=== PATIENT | female | born 1950 | race African-American/Black ===

== ENCOUNTER 2018-07-17 11:45 | Emergency (ER) | payer OTHER ==
[2018-07-17] MEDS ORDERED: ZOFRAN ODT PO STA (12:04)
[2018-07-17] MEDS ORDERED: LACTATED RINGERS 1,000 ML IV STA (12:04)
[2018-07-17 12:11] VITALS: BP 130/71; TEMP 98.8; BMI 26.4
--- NOTE | 2018-07-17 12:13 | ED.PDOC ---
General ED Provider: Dr. SEB BECKWITH Chief Complaint: Diarrhea Stated Complaint: Patient states that she has been having Diarrhea and vomiting since 4 AM today. She reports that she Vomited x 3 and had countless number of loose stools. Time Seen by Physician: 12:07 Mode of Arrival: Ambulance Information Source: Patient, EMT Exam Limitations: No limitations Nursing and Triage Documentation Reviewed and Agree: Yes Does patient meet sepsis criteria?: No System Inflammatory Response Syndrome: Not Applicable Sepsis Protocol: For patient's 13 years and over: Temp is 96.8 and below OR 101 and greater Pulse >90 BPM Resp >20/minute Acutely Altered Mental Status Are patient's symptoms suggestive of a new infection, such as: -Pneumonia -Skin, Soft Tissue -Endocarditis -UTI -Bone, Joint Infection -Implantable Device -Acute Abdominal Infection -Wound Infection -Meningitis -Blood Stream Catheter Infection -Unknown Review of Systems - Review Of Systems Constitutional: Reports: No symptoms Eyes: Reports: No symptoms Ears, Nose, Mouth, Throat: Reports: No symptoms Respiratory: Reports: No symptoms Cardiac: Reports: No symptoms GI: Reports: Diarrhea, Nausea, Poor appetite, Vomiting : Reports: No symptoms Musculoskeletal: Reports: No symptoms Skin: Reports: No symptoms Neurological: Reports: No symptoms Endocrine: Reports: No symptoms Hematologic/Lymphatic: Reports: No symptoms All Other Systems: Reviewed and Negative Past Medical History - Past Medical History Previously Healthy: Yes Endocrine: Reports: Dyslipidemia Cardiovascular: Reports: Hypertension Respiratory: Reports: None Hematological: Reports: None Gastrointestinal: Reports: None Genitourinary: Reports: None Neuro/Psych: Reports: None Musculoskeletal: Reports: None Cancer: Reports: None Last Menstrual Period: na - Surgical History General Surgical History: Reports: Hysterectomy, Hernia Repair, Other ( lumpectomy x4) - Family History Family History: Reports: Unknown - Social History Smoking Status: Never smoker Hx Substance Use: No Alcohol Screening: Occasionally - Immunizations Tetanus Shot up to Date: No Physical Exam - Physical Exam Appearance: Ill-appearing, Well-nourished Eyes: BRITTANY, EOMI, Conjunctiva clear ENT: Ears normal, Nose normal, Oropharynx normal Respiratory: Airway patent, Breath sounds clear, Breath sounds equal, Respirations nonlabored Cardiovascular: RRR, Pulses normal, No rub, No murmur GI/: Soft, Nontender, No masses, Bowel sounds normal, No Organomegaly Musculoskeletal: Normal strength, ROM intact, No edema, No calf tenderness Skin: Warm, Dry, Normal color Neurological: Sensation intact, Motor intact, Reflexes intact, Cranial nerves intact, Alert, Oriented Psychiatric: Affect appropriate, Mood appropriate Critical Care Note - Critical Care Note Total Time (mins): 0 Course - Course Hematology/Chemistry: 07/17/18 12:15 07/17/18 12:15 Orders, Labs, Meds: Lab Review 07/17/18 07/17/18 12:15 12:15 WBC 7.85 RBC 4.34 Hgb 12.4 Hct 38.0 MCV 87.6 MCH 28.6 MCHC 32.6 RDW Coeff of [place] 14.5 Plt Count 178 Immature Gran % (Auto) 0.3 Neut % (Auto) 95.3 Lymph % (Auto) 2.4 L [place] % (Auto) 1.8 Eos % (Auto) 0.1 Baso % (Auto) 0.1 Immature Gran # (Auto) 0.0 Neut # (Auto) 7.5 H Lymph # (Auto) 0.2 L [place] # (Auto) 0.1 L Eos # (Auto) 0.0 Baso # (Auto) 0.0 Sodium 138.3 Potassium 4.29 Chloride 107.6 H Carbon Dioxide 26.1 Anion Gap 8.89 BUN 17.4 H Creatinine 0.82 Estimated GFR (MDRD) 84.00 BUN/Creatinine Ratio 21.21 Glucose 118.1 H Calcium 9.27 Total Bilirubin 1.15 AST 44.0 H ALT 41.8 H Alkaline Phosphatase 70.5 Total Protein 7.31 Albumin 4.35 Globulin 2.96 Albumin/Globulin Ratio 1.46 Amylase 144.3 H Lipase 672.6 H Orders Category Date Time Status AMYLASE Stat LAB 07/17/18 12:15 Completed CBC W/ AUTO DIFF Stat LAB 07/17/18 12:15 Completed COMPREHENSIVE METABOLIC PANEL Stat LAB 07/17/18 12:15 Completed LIPASE Stat LAB 07/17/18 12:15 Completed Ondansetron HCl/Pf [Zofran 4 mg/2 ml] MEDS 07/17/18 12:27 Discontinued 4 mg IVP ONCE STA Ringers Lactated Solution [Lactated Ringers] 1,000 ml MEDS 07/17/18 12:04 Discontinued IV BOLUS Medications Discontinued Medications Generic Name Dose Route Start Last Admin Trade Name Freq PRN Reason Stop Dose Admin Lactated Ringer's 1,000 mls @ 1,000 mls/hr 07/17/18 12:04 07/17/18 12:42 Lactated Ringers IV 07/17/18 13:03 1,000 mls/hr BOLUS STA Administration Ondansetron HCl 4 mg 07/17/18 12:27 07/17/18 12:42 Zofran 4 Mg/2 Ml IVP 07/17/18 12:28 4 mg ONCE STA Administration Vital Signs: Temp Pulse Resp BP Pulse Ox 07/17/18 11:47 98.8 F 88 16 130/71 100 Departure - Departure Time of Disposition: 13:42 Disposition: HOME SELF-CARE Discharge Problem: Gastroenteritis and colitis, viral, Dehydration, Elevated pancreatic enzyme Instructions: Dehydration (ED), Gastroenteritis (ED) Condition: Stable Pt referred to PMD for follow-up: Yes IPMP verified?: No Additional Instructions: Push fluids Follow up with Your PCP in 3 days Take over the counter Anti Diarrhea medications. Prescriptions: Ondansetron HCl [Zofran Tab] 4 mg PO Q8H PRN #14 tablet PRN Reason: Nausea / Vomiting Allergies/Adverse Reactions: Allergies lisinopril Adverse Reaction (Verified 07/17/18 12:04) Home Medications: Ambulatory Orders Ondansetron HCl [Zofran Tab] 4 mg PO Q8H PRN #14 tablet 07/17/18 Disposition Discussed With: Patient, Family
[2018-07-17] MEDS ORDERED: ZOFRAN 4 MG/2 ML IVP STA (12:27)
== END 2018-07-17 13:50 | disposition home or self-care (01) ==
LOC: ED 11:45
DX: A08.4 Viral intestinal infection, unspecified (principal); E86.0 Dehydration; R74.8 Abnormal levels of other serum enzymes
CPT/HCPCS: 36415; 80053; 82150; 83690; 85025; 96361; 96374; 99283